=== PATIENT | male | born 1960 | race Caucasian/White ===

== ENCOUNTER → 2020-12-02 | Outpatient (CLI) | payer BC ==
[~2020-12-02] MED LIST: hydrochlorothiazide; losartan; metoprolol; omega-3; rovastatin
== END ==
LOC: LAB 10:45
PROVIDERS: ATTEND Nurse Anesthetist, Certified Registered
DX: Z01.812 Encounter for preprocedural laboratory examination (principal); Z86.010 Personal history of colon polyps; Z20.822 Contact with and (suspected) exposure to COVID-19
CPT/HCPCS: U0003

== ENCOUNTER → 2020-12-06 | Day surgery (SDC) | payer BC ==
[~2020-12-06] MED LIST changes: +IPRATRPIUM/ALBUTEROL 0.5/2.5MG 3 ML NEBU. NEB PRN; +IV RINGERS SOLUTION,LACTATED 1,000 ML IV SCH; +LIDOCAINE 2% PF 5 ML VIAL. ONE; +MIDAZOLAM HCL PF 2 MG/2 ML VIAL. IV ONE; +ONDANSETRON PF 4 MG/2 ML VIAL. IV PRN; +PROPOFOL 10,000 MCG/ML (20ML) VIAL IV ONE
[2020-12-06 11:27] VITALS: BP 150/85
--- NOTE | 2020-12-13 09:08 | PATHOLOGY ---
[facility] Accession Number: [id number] . 01 Material submitted: . PART A: colon - ASCENDING POLYP. Modifiers: ascending PART B: rectum - RECTAL POLYP . 01 Clinical history: . PRE-OPERATIVE DIAGNOSIS - HISTORY POLYPS OPERATIVE PROCEDURE - COLONOSCOPY . 02 Diagnosis: A. Colon biopsy, ascending colon polyp: - Tubular adenoma. . B. Colorectal biopsies, rectal polyp: - Hyperplastic polyp. . (M:dustin; 12/12/2020) R 12/12/2020 1822 Local . 02 Comment: There is no high-grade dysplasia or evidence of malignancy. (NATM:dustin; 12/12/2020) . 02 Electronically signed: . Zachariah Mejia MD, Pathologist NPI- [id number] . 01 Gross description: . A. The specimen is received in formalin, labeled with the patient's name and "ascending polyp" and consists of segment [place] tissue measuring 0.6 x 0.5 x 0.3 cm which is entirely submitted in A1. . B. The specimen is received in formalin, labeled with the patient's name and "rectal polyp" and consists of 2 fragments of pink tissue measuring 0.2 x 0.2 cm each which are entirely submitted in B1.(SDY; 12/09/2020) SYU/SYU 12/09/2020 1058 Local . 02 Pathologist provided ICD-10: D12.2, K62.1 . 02 CPT . 236909, 379403 Specimen Comment: A courtesy copy of this report has been sent to [phone] Specimen Comment: Report sent to / Performed at: [address] [place] [address] [address], [place], [place] [id number] MD Edwar Yi MD Phone: [phone] Performed at: [address] [id number] MD Zachariah Mejia MD Phone: [phone]
== END | disposition home or self-care (01) ==
LOC: SURG 09:38
PROVIDERS: ATTEND Emergency Medicine
DX: Z12.11 Encounter for screening for malignant neoplasm of colon (principal); K57.30 Diverticulosis of large intestine without perforation or abscess without bleeding; K63.5 Polyp of colon; K62.1 Rectal polyp; K63.89 Other specified diseases of intestine; Z86.010 Personal history of colon polyps; Z72.89 Other problems related to lifestyle
CPT/HCPCS: 45380; 45385; J2001; J2704; J7120

== ENCOUNTER → 2021-10-06 | Outpatient (CLI) | payer BC ==
[2020-12-06 11:27] VITALS: BP 150/85
[~2021-10-06] MED LIST changes: -IPRATRPIUM/ALBUTEROL 0.5/2.5MG 3 ML NEBU. NEB PRN; -IV RINGERS SOLUTION,LACTATED 1,000 ML IV SCH; -LIDOCAINE 2% PF 5 ML VIAL. ONE; -MIDAZOLAM HCL PF 2 MG/2 ML VIAL. IV ONE; -ONDANSETRON PF 4 MG/2 ML VIAL. IV PRN; -PROPOFOL 10,000 MCG/ML (20ML) VIAL IV ONE
--- NOTE | 2021-10-06 16:52 | RAD ---
Chest PA and lateral: Reason for examination: Cough for 6 months. Former smoker. The heart size is normal. Mediastinum is unremarkable. Lung arora are clear. No acute bony abnormali ties are seen. Impression: No acute cardiopulmonary disease. Electronically signed by: Daysi Liz MD (10/06/2021 4:50 PM) [facility]
== END ==
LOC: RAD 12:14
PROVIDERS: ATTEND Physician Assistant
DX: R05.9 Cough, unspecified (principal); Z87.891 Personal history of nicotine dependence
CPT/HCPCS: 71046